=== PATIENT | female | born 1985 | race Caucasian/White ===

== ENCOUNTER 2018-12-02 21:57 | Emergency (ER) | payer BC ==
[~2018-12-02] VITALS: Ht 157.5 cm; Wt 81.6 kg
--- NOTE | 2018-12-02 22:00 | NUR ---
Patient to ER bed 7 for evaluation.
[2018-12-02 22:05] VITALS: BP_SYST 120
--- NOTE | 2018-12-02 22:10 | NUR ---
Patient to ER via triage for evaluation of right ankle pain s/p non-syncopal trip and fall. NO LOC reported, no neck or back pain, patient able to move all extremities. Patient is awake, alert and oriented in no acute distress, vital signs stable, respirations even and unlabored, skin warm and dry to touch. Patient arrives to bed 7 via wheelchair, able to get onto gurney with minimal assistance. Awaiting evaluation by ER MD, will continue to observe and assess.
--- NOTE | 2018-12-02 22:13 | NUR ---
ER at bedside examining patient.
[2018-12-02] MEDS ORDERED: HYDROcodone/ACETAMIN 5-325 MG TAB (NORCO/ VICODIN) PO ONE (22:15)
--- NOTE | 2018-12-02 22:24 | NUR ---
X-ray at bedside for films
--- NOTE | 2018-12-02 22:40 | NUR ---
Dr Amador at bedside speaking with patient regarding results and plan of care, questions answered by Dr Amador.
[2018-12-02 23:10] VITALS: BP_SYST 120
--- NOTE | 2018-12-02 23:10 | NUR ---
Patient given written and verbal discharge instructions and verbalizes understanding. ER MD discussed with patient the results and treatment provided. Patient in stable condition. ID arm band removed. Rx of [place] given. Patient educated on pain management and to follow up with PMD. Pain Scale 0. Opportunity for questions provided and answered. Medication side effect fact sheet provided. Patient left ER in no acute distress, able to ambulate with crutches without difficulty with slow, steady gait. Patient escorted out of ER with RN and taed to car via wheelchair and assisted into car without incident.
== END 2018-12-02 23:10 | disposition home or self-care (01) ==
LOC: SED 21:57
DX: S82.64XA Nondisplaced fracture of lateral malleolus of right fibula, initial encounter for closed fracture (principal); J45.909 Unspecified asthma, uncomplicated; Z88.6 Allergy status to analgesic agent; Y92.89 Other specified places as the place of occurrence of the external cause; X58.XXXA Exposure to other specified factors, initial encounter; Y93.89 Activity, other specified; Y99.8 Other external cause status
CPT/HCPCS: 81025; 99283